=== PATIENT | female | born 1970 | race Caucasian/White ===

== ENCOUNTER 2024-03-17 17:36 | Emergency (ER) | payer BC, OTHER ==
[~2024-03-17] VITALS: Ht 177.8 cm; Wt 95.4 kg
[2024-03-17 18:00] VITALS: PULSE 85; RESP 20; O2SAT 98
[2024-03-17 18:32] LABS: Basophils # (auto) 0 10 ^3/uL (0-0.2); Eosinophils # (auto) 0.1 10 ^3/uL (0-0.8); Lymphocytes # (auto) 0.9 10 ^3/uL (0.4-5.4); White Blood Cell 5.5 10^3/uL (4.4-10.8)
[2024-03-17 18:34] LABS: Basophils % (auto) 0.9 % (0.0-2.0); Eosinophils % (auto) 0.9 % (0.0-7.0); Hematocrit 28.9 % (36.0-46.0); Hemoglobin 9.3 g/dL (12.2-16.2); Mean Corpuscular Hemoglobin 21.9 pg (28.0-32.0); Mean Corpuscular Hgb Conc. 32.1 g/dL (32.0-36.0); Monocytes # (auto) 0.5 10 ^3/uL (0-1.3); Monocytes % (auto) 9.9 % (0.0-12.0); Neutrophils # (auto) 3.9 10 ^3/uL (1.6-8.6); Neutrophils % (auto) 72.3 % (37.0-80.0); Nucleated Red Blood Cells % 0.1 %; Platelet Count (auto) 260 10^3/uL (140-450); Red Blood Cells 4.25 10^6/uL (4.0-5.20)
[2024-03-17 18:38] LABS: Red Cell Distribution Width 26.4 % (11.8-14.3)
[2024-03-17] MEDS: KETOROLAC TROMETH 30 MG/ML 1ML VIAL IV ONE (18:38)
[2024-03-17 18:43] LABS: Chloride 107 mmol/L (98-107); Sodium 139 mmol/L (136-145)
[2024-03-17 18:44] LABS: Anion Gap 11 (5-15); Carbon Dioxide 21 mmol/L (20-31)
[2024-03-17 18:45] LABS: Calcium 9.8 mg/dL (8.7-10.4)
[2024-03-17 18:49] LABS: BUN/Creatinine Ratio 12.7 (10.0-20.0); Blood Urea Nitrogen 20 mg/dL (9-23); Glucose 99 mg/dL (74-106)
[2024-03-17 18:51] LABS: Creatine Kinase IFCC 40 U/L (34-145)
[2024-03-17 19:24] LABS: Anisocytosis Slight
[2024-03-17 19:25] LABS: Large Platelets FEW; Macrocytosis Slight; Platelet Estimate Adequa
[2024-03-17 20:00] VITALS: TEMP 98.2
[2024-03-17] MEDS ORDERED: CYCL-838 PO (20:45)
[2024-03-17] MEDS ORDERED: HYDR-4902 PO (20:45)
[2024-03-17 22:18] VITALS: BP 152/59; PULSE 99; RESP 16; O2SAT 97
== END 2024-03-17 22:18 | disposition home or self-care (01) ==
LOC: ER 17:36 → EDBD 17:36 → ER 22:18
DX: D64.9 Anemia, unspecified (principal); G89.29 Other chronic pain; I10 Essential (primary) hypertension
CPT/HCPCS: 36415; 80048; 82550; 85025; 96374; 99283; J1885